=== PATIENT | male | born 1970 | race Caucasian/White ===

== ENCOUNTER 2017-08-21 19:11 | Emergency (ER) | END 2017-08-21 22:46 | disposition home or self-care (01) ==

== ENCOUNTER 2018-11-09 01:22 | Emergency (ER) | payer SELFPAY ==
[~2018-11-09] VITALS: Ht 160 cm; Wt 105.9 kg
[~2018-11-09 01:22] MED LIST: NPH10OT RIGHT EAR
[2018-11-09 01:42] VITALS: Ht 160 cm; Wt 105.9 kg
--- NOTE | 2018-11-09 05:57 | ERD ---
ER Documentation Chief Complaint Chief Complaint cough x 2 weeks HPI This is a 48-year-old male presents here in the emergency department with complaints of cough in the last 2 weeks. Stated that he has productive (yellowish to greenish phlegm) in the last 4 days. Also complains of nasal congestion. Denies headache, head injury, loss of consciousness, dizziness, neck pain, neck stiffness, throat pain, difficulty swallowing, difficulty breathing lying flat, shoulder pain, chest pain, back pain, abdominal pain, nausea, vomiting, constipation, diarrhea, urinary symptoms, loss of bowel and bladder control, trauma, injury, falls, difficulty walking due to pain, numbness or tingling sensation, calf pain, recent travel, recent major surgery in the last 3 weeks, calf pain, recent long travel, recent exposure to any illness, recent antibiotic use in the last 3 months, fever, chills, seizures. Past medical history: Surgical history: Social: Denies smoking, use of alcoholic beverages, use of illegal drugs. ROS All systems reviewed and are negative except as per history of present illness. Medications Home Meds Active Scripts Ibuprofen* (Motrin*) 800 Mg Tab, 800 MG PO Q6H PRN for PAIN AND OR ELEVATED TEMP, #30 TAB Prov:OSCARGABYKATE Cota 11/09/18 Benzonatate* (Tessalon Perle*) 100 Mg Capsule, 100 MG PO Q8H PRN for COUGH, #15 CAP Prov:PASILANATASHAGABYKATE F 11/09/18 Prednisone* (Prednisone*) 20 Mg Tab, 60 MG PO DAILY for 4 Days, TAB Prov:MIGNON MOORE 11/09/18 Azithromycin* (Zithromax*) 250 Mg Tablet, 250 MG PO .KARLA DIRECTED, #6 TAB TAKE 500 MG (2 TABS) THE FIRST DAY THEN 250 MG (1 TAB) DAYS 2-5 Prov:MIGNON MOORE Beata 11/09/18 Amoxicillin/Potassium Clav (Amox-Clav 875-125 mg Tablet) 875-125 mg Tab, 1 TAB PO BID for 10 Days, #20 TAB Prov:PASILAMIGNON KAUR F 11/09/18 Neomycin/Polymyxin/Hydrocort* (Cortisporin* Otic) 10 Ml Susp, 4 DROP RIGHT EAR QID for 7 Days, EA Prov:ARVIND LEVY NP 08/21/17 Allergies Allergies: Coded Allergies: No Known Drug Allergies (Verified Allergy, Unknown, 08/21/17) PMhx/Soc Hx Alcohol Use: No Hx Substance Use: No Hx Tobacco Use: No Physical Exam Vitals Physical Exam Const: No acute distress Head: Atraumatic Eyes: Normal Conjunctiva. Eyeballs are not sunken. No signs of severe dehydration. ENT: Normal External Ears, Nose and Mouth. Bilateral ears: TMs are not erythematous. No bleeding. No discharge. No hearing loss. No mastoid tendern ess. Nose: There is frontal and maxillary sinus tenderness palpation. Throat: Uvula is in midline and nondisplaced. Tonsils are +1 bilaterally without redness and without exudates. Tolerating secretions. Patent airway. Speaks full and clear sentences. No tripoding. Neck: Full range of motion. No meningismus. No nuchal rigidity. No signs of meningeal irritation. Resp: Clear to auscultation bilaterally. No accessory muscle use in breathing. Cardio: Regular rate and rhythm, no murmurs Abd: Soft, non tender, non distended. Normal bowel sounds. No abdominal tenderness. Skin: No petechiae or rashes. No vesicular lesions. No skin tenting. No signs of severe dehydration. Back: No midline or flank tenderness Ext: No cyanosis, or edema Neur: Awake and alert. No neurological deficits. Psych: Normal Mood and Affect Procedures/MDM I offered treatment and diagnostic tests but patient strongly refused. Stated that he does not want to wait and that prefers to be prescribed with strong antibiotics. Diagnostic tests: Clinical exam. Treatment: Not applicable. Re-evaluation: Not applicable. Differential diagnosis I have low suspicion for sepsis, meningitis, exudates, peritonsillar abscess, bronchospasm, severe dehydration. Final diagnosis: Bronchitis. Sinusitis. Prescription: Augmentin. Azithromycin. Motrin. Tessalon Perles. Prednisone. Follow-up with PCP in the next 24-48 hours. Come back here in the emergency department for any new symptoms or any worsening symptoms. All questions and concerns were answered. Patient and family members verbalized understanding and agreed with plan of care. Hemodynamically stable on discharge. Departure Diagnosis: Primary Impression: Bronchitis Additional Impression: Sinusitis Condition: Stable Additional Instructions: Follow-up with PCP in the next 24-48 hours. Come back here in the emergency de partment for any new symptoms or any worsening symptoms. MIGNON MOORE Nov 09, 2018 05:57
[2018-11-09] MEDS ORDERED: IBUP800T48 PO (05:58)
[2018-11-09] MEDS ORDERED: PRED20TA PO (05:58)
[2018-11-09] MEDS ORDERED: AMOX1TAB10 PO (05:58)
[2018-11-09] MEDS ORDERED: BENZ-6 PO (05:58)
[2018-11-09] MEDS ORDERED: AZIT250T PO (05:58)
[2018-11-09 06:40] VITALS: BP 175/96; PULSE 70; RESP 16
== END 2018-11-09 06:40 | disposition home or self-care (01) ==
LOC: FTE 01:22
DX: J40 Bronchitis, not specified as acute or chronic (principal); J32.9 Chronic sinusitis, unspecified
CPT/HCPCS: 99283